=== PATIENT | male | born 1985 | race American Indian/Alaskan Native ===

== ENCOUNTER 2018-09-24 02:03 | Emergency (ER) | payer MEDICAID ==
[2018-09-24 02:25] VITALS: BP 118/78
[2018-09-24] MEDS ORDERED: NACL 0.9% 1000 ML 1,000 ML IV ONE ×2 (02:25→04:34)
[2018-09-24 03:09] LABS: Alanine Aminotransferase 35 units/L (7-56); Albumin 4.7 g/dL (3.9-5); BUN/Creatinine Ratio 18; Blood Urea Nitrogen 16 mg/dL (9-20); Calcium 8.7 mg/dL (8.4-10.2); Hemolysis Index 15
[2018-09-24 03:10] LABS: Basophils % (Auto) 0.5 % (0.0-1.8); Bilirubin,Urine NEG (Negative); Blood,Urine NEG (Negative); Color,Urine Straw (Yellow); Eosinophils # (Auto) 0.3 K/mm3 (0.0-0.4); Eosinophils % (Auto) 2.5 % (0.0-4.3); Hematocrit 42.3 % (35.5-45.6); Hemoglobin 14.7 gm/dl (11.8-15.2); Lymphocytes # (Auto) 3.9 K/mm3 (1.2-5.4); Lymphocytes % (Auto) 37.8 % (13.4-35.0); Mean Corpuscular HGB Conc 35 % (32-34); Mean Corpuscular Volume 99 fl (84-94); Monocytes # (Auto) 0.9 K/mm3 (0.0-0.8); Platelet Count 336 K/mm3 (140-440); Protein,Urine <15 mg/dL mg/dL (Negative); Red Blood Count 4.28 M/mm3 (3.65-5.03); Red Cell Distribution Width 13.1 % (13.2-15.2); Urobilinogen,Urine < 2.0 mg/dL (<2.0); WBC,Urine < 1.0 /HPF (0.0-6.0)
--- NOTE | 2018-09-24 03:40 | Emergency Department Report ---
ED Male HPI - General Chief complaint: Abdominal Pain Stated complaint: ABD PAIN, HEADACHE Time Seen by Provider: 09/24/18 02:53 Source: patient Mode of arrival: Ambulatory Limitations: No Limitations - History of Present Illness Initial comments: Pt presents to the ED with c/o right flank pain that radiates to the right, lateral side of the abdomen that began a couple of days ago. He has associated nausea. He denies any V/D, fever, dysuria, blood in the urine, urinary frequency, or any other sx. He denies any PSHx. The patient is a drinker. He s tates he drank about 3 beers today. - Related Data Previous Rx's Medication Instructions Recorded Last Taken Type Dicyclomine [Bentyl] 10 mg PO QID PRN #14 capsule 09/24/18 Unknown Rx Ondansetron [Zofran Odt] 4 mg PO Q8HR PRN #8 tab.rapdis 09/24/18 Unknown Rx Allergies Allergy/AdvReac Type Severity Reaction Status Date / Time No Known Allergies Allergy Verified 09/24/18 02:55 ED Review of Systems ROS: Stated complaint: ABD PAIN, HEADACHE Other details as noted in HPI Comment: All other systems reviewed and negative ED Past Medical Hx - Past Medical History Previous Medical History?: No - Surgical History Past Surgical History?: No - Social History Smoking Status: Never Smoker Substance Use Type: Alcohol - Medications Home Medications: Home Medications Medication Instructions Recorded Confirmed Last Taken Type Dicyclomine [Bentyl] 10 mg PO QID PRN #14 capsule 09/24/18 Unknown Rx Ondansetron [Zofran Odt] 4 mg PO Q8HR PRN #8 tab.rapdis 09/24/18 Unknown Rx ED Physical Exam - General Limitations: No Limitations General appearance: alert, in no apparent distress - Head Head exam: Present: atraumatic, normocephalic - Eye Eye exam: Present: normal appearance - ENT ENT exam: Present: mucous membranes moist - Respiratory Respiratory exam: Present: normal lung sounds bilaterally. Absent: respiratory distress, wheezes, rales, rhonchi, stridor, chest wall tenderness, accessory muscle use, decreased breath sounds, prolonged expiratory - Cardiovascular Cardiovascular Exam: Present: regular rate, normal rhythm, normal heart sounds. Absent: systolic murmur, rubs, gallop - GI/Abdominal GI/Abdominal exam: Present: soft, normal bowel sounds. Absent: distended, tenderness, guarding, rebound, rigid, mass - Back Exam Back exam: Present: normal inspection, CVA tenderness (R) (very mild). Absent: CVA tenderness (L), muscle spasm, paraspinal tenderness, vertebral tenderness - Neurological Exam Neurological exam: Present: alert, oriented X3 - Psychiatric Psychiatric exam: Present: normal affect, normal mood ED Course Vital Signs 09/24/18 09/24/18 02:23 04:17 Temperature 98.1 F Pulse Rate 76 Respiratory 18 18 Rate Blood Pressure 118/78 O2 Sat by Pulse 98 Oximetry - Reevaluation(s) Reevaluation #1: 09/24/18 05:03 pt given 1 L of fluids. Blood work drawn approx. 2 1/2 hours ago. Blood alcohol should now be normalized. Pt is not driving. Pt is taking non emergent transport. Pt appears sober, able to ambulate without difficulty, no tremors, no N/V. ED Medical Decision Making - Lab Data Result diagrams: 09/24/18 02:33 09/24/18 02:33 Laboratory Results - last 24 hr 09/24/18 09/24/18 09/24/18 02:33 02:33 02:33 WBC 10.2 RBC 4.28 Hgb 14.7 Hct 42.3 MCV 99 H MCH 34 H MCHC 35 H RDW 13.1 L Plt Count 336 Lymph % (Auto) 37.8 H [place] % (Auto) 9.0 H Eos % (Auto) 2.5 Baso % (Auto) 0.5 Lymph # 3.9 [place] # 0.9 H Eos # 0.3 Baso # 0.0 Seg Neutrophils % 50.2 Seg Neutrophils # 5.1 Sodium 137 Potassium 4.0 Chloride 98.9 Carbon Dioxide 28 Anion Gap 14 BUN 16 Creatinine 0.9 Estimated GFR > 60 BUN/Creatinine Ratio 18 Glucose 89 Calcium 8.7 Total Bilirubin 0.70 AST 40 ALT 35 Alkaline Phosphatase 54 Total Protein 7.4 Albumin 4.7 Albumin/Globulin Ratio 1.7 Lipase 88 H Urine Color Straw Urine Turbidity Clear Urine pH 6.0 Ur Specific [place] 1.005 Urine Protein <15 mg/dl Urine Glucose (UA) Neg Urine Ketones Neg Urine Blood Neg Urine Nitrite Neg Urine Bilirubin Neg Urine Urobilinogen < 2.0 Ur Leukocyte Esterase Neg Urine WBC (Auto) < 1.0 Urine RBC (Auto) 3.0 U Epithel Cells (Auto) < 1.0 Plasma/Serum Alcohol 09/24/18 03:30 WBC RBC Hgb Hct MCV MCH MCHC RDW Plt Count Lymph % (Auto) [place] % (Auto) Eos % (Auto) Baso % (Auto) Lymph # [place] # Eos # Baso # Seg Neutrophils % Seg Neutrophils # Sodium Potassium Chloride Carbon Dioxide Anion Gap BUN Creatinine Estimated GFR BUN/Creatinine Ratio Glucose Calcium Total Bilirubin AST ALT Alkaline Phosphatase Total Protein Albumin Albumin/Globulin Ratio Lipase Urine Color Urine Turbidity Urine pH Ur Specific [place] Urine Protein Urine Glucose (UA) Urine Ketones Urine Blood Urine Nitrite Urine Bilirubin Urine Urobilinogen Ur Leukocyte Esterase Urine WBC (Auto) Urine RBC (Auto) U Epithel Cells (Auto) Plasma/Serum Alcohol 0.17 H - Radiology Data Radiology results: report reviewed HISTORY: right flank pain COMPARISONS: None FINDINGS: Imaged intrathoracic contents are unremarkable. Kidneys are normal in size, axis and position. No hydronephrosis or nephrolithiasis. The ureters are normal in course and caliber. No stones are seen within the urinary bladder. The liver, gallbladder, pancreas, spleen, and adrenal glands demonstrate an unremarkable noncontrast appearance. Hollow enteric organs are normal in course and caliber. Appendix is normal. No intra-abdominal free air/fluid or lymphadenopathy. Aorta is normal in course and caliber. Superficial soft tissues are unremarkable. No acute or aggressive appearing skeletal findings. IMPRESSION: No CT evidence of obstructive urolithiasis or other acute abdominal or pelvic findings. Consider infection and recently passed stone is potential etiologies for patient's symptoms. This document is electronically signed by Ervin Smith MD., September 24 2018 04:07:40 AM ET - Medical Decision Making Pt presents to the ED with c/o right flank pain that radiates to the right, lateral side of the abdomen that began a couple of days ago. He has associated nausea. He denies any V/D, fever, dysuria, blood in the urine, urinary frequency, or any other sx. He denies any PSHx. The patient is a drinker. He states he drank about 3 beers today. VSS. very mild right CVAT, abdominal exam is normal. Pt has very mildly elevated lipase most likely due to alcohol use. Pt is tolerating PO intake. Pt given 1 L of fluids in the ED, pt is not driving, pt is going home by non emergent transport. Pt observed in the ED for three hours. Patient appears sober on repeat examination, gait is steady and normal, no tremor, no N/V, pt tolerating PO in the ED. Advised to follow up with primary care doctor in the next 2-3 days. Return to the ED for any new or worsening symptoms. - Differential Diagnosis Nephrolithiasis, UTI, Indigestion, GERD, muscle strain Critical care attestation.: If time is entered above; I have spent that time in minutes in the direct care of this critically ill patient, excluding procedure time. ED Disposition Clinical Impression: Flank pain, Nausea Elevated ETOH level Qualifiers: Blood alcohol level: 120-199 mg/100 ml Qualified Code(s): Y90.6 - Blood alcohol level of 120-199 mg/100 ml Disposition: TO HOME OR SELFCARE Is pt being admited?: No Does the pt Need Aspirin: No Condition: Stable Instructions: Flank Pain (ED) Additional Instructions: Follow up with primary care doctor in the next 2-3 days. Return to the ED for any new or worsening symptoms. Prescriptions: Dicyclomine [Bentyl] 10 mg PO QID PRN #14 capsule PRN Reason: Spasms Ondansetron [Zofran Odt] 4 mg PO Q8HR PRN #8 tab.rapdis PRN Reason: Nausea Referrals: [facility] MD KASIE [Primary Care Provider] - 2-3 Days Time of Disposition: 05:30 Print Language: JAPANESE
--- NOTE | 2018-09-24 04:10 | Cat Scan Report ---
PROCEDURE: CT ABDOMEN PELVIS WO CON TECHNIQUE: CT imaging is obtained through the abdomen and pelvis without contrast. Transaxial, coron al and sagittal reformations are provided. HISTORY: right flank pain COMPARISONS: None FINDINGS: Imaged intrathoracic contents are unremarkable. Kidneys are normal in size, axis and position. No hydronephrosis or nephrolithiasis. The ureters are normal in course and caliber. No stones are seen within the urinary bladder. The liver, gallbladder, pancreas, spleen, and adrenal glands demonstrate an unremarkable noncontrast appearance. Hollow enteric organs are normal in course and caliber. Appendix is normal. No intra-abdominal free a ir/fluid or lymphadenopathy. Aorta is normal in course and caliber. Superficial soft tissues are unremarkable. No acute or aggressive appearing skeletal findings. IMPRESSION: No CT evidence of obstructive urolithiasis or other acute abdominal or pelvic findings. Consider infe ction and recently passed stone is potential etiologies for patient's symptoms. This document is electronically signed by Ervin Smith MD., September 24 2018 04:07:40 AM ET
[2018-09-24] MEDS ORDERED: ZOFRAN IV ONE (04:34)
== END 2018-09-24 05:39 | disposition home or self-care (01) ==
LOC: ED 02:03
DX: R10.9 Unspecified abdominal pain (principal); R11.0 Nausea; R78.0 Finding of alcohol in blood; Y90.6 Blood alcohol level of 120-199 mg/100 ml; F10.129 Alcohol abuse with intoxication, unspecified
CPT/HCPCS: 36415; 74176; 80053; 81001; 83690; 85025; 96374; 99284; G0480; J2405; J7030; 80320

== ENCOUNTER 2019-06-19 13:47 | Emergency (ER) | payer MEDICAID ==
[2019-06-19 14:43] VITALS: BP 111/80
--- NOTE | 2019-06-19 14:44 | Event Note ---
ED Screening Note Date of service: 06/19/19 Time: 14:42 ED Screening Note: This is a 33 y.o. M. that presents to the ER with left hip pain since yesterday. Patient reports pain started while at work. Denies injury. This initial assessment/diagnostic orders/clinical plan/treatment(s) is/are s ubject to change based on patients health status, clinical progression and re- assessment by fellow clinical providers in the ED. Further treatment and workup at subsequent clinical providers discretion. Patient/guardian urged not to elope from the ED as their condition may be serious if not clinically assessed and managed. Initial orders include: XR left hip
--- NOTE | 2019-06-19 15:33 | XRay Report ---
LEFT HIP 2 VIEWS INDICATION: hip pain. COMPARISON: None. IMPRESSION: No acute osseous or soft tissue abnormality. Early osteoarthritic changes are identif ied at the left hip. No evidence for osteonecrosis at this time. Signer Name: Kishore Rice Jr, MD Signed: 06/19/2019 3:28 PM Workstation Name: [id number]
--- NOTE | 2019-06-19 16:49 | Emergency Department Report ---
Chief Complaint: Extremity Problem,Nontraumatic Stated Complaint: LFT HIP PAIN Time Seen by Provider: 06/19/19 14:42 - HPI History of Present Illness: This is a 33-year-old healthy looking male presents to ED complaining of left hip pain tested at this morning. Patient states he does a lot of heavy lifting and does yard work and does a lot of bending. Patient denies any injuries trauma or falls. Patient denies any back pain, fever, urinary symptoms or any other symptoms - ROS Review of Systems: As noted in HPI - Exam Vital Signs: Vital Signs 06/19/19 14:42 Temperature 97.5 F L Pulse Rate 92 H Respiratory 18 Rate Blood Pressure 111/80 O2 Sat by Pulse 98 Oximetry Physical Exam: GENERAL: Alert and oriented x3, no apparent distress, Normal Gait, atraumatic. EXTREMITIES/MUSCULOSKELETAL: No cyanosis, clubbing, rash, lesions or edema. Full ROM bilaterally. UE/LE Pulses 2+ bilaterally. LE and UE 5+ strength bilaterally, straight leg raise negative bilaterally NEUROLOGIC: The patient is cooperative with no focal neurologic deficits. MSE screening note: Focused history and physical exam performed. Due to findings the following was ordered: ED Medical Decision Making - Medical Decision Making 33-year-old male who presents for left hip pain with no other symptoms Discussed with the patient that this is not a medical emergency. Patient was given resources to [facility]/ Dr Pierre's office for further evaluation.. Patient understands instructions and states he will follow-up Vital signs are normal. he is in no acute distress ED Disposition for MSE Clinical Impression: Hip pain, left Disposition: Z-07 MED SCREENING EXAM-LEFT Is pt being admited?: No Does the pt Need Aspirin: No Condition: Stable Instructions: Arthralgia (ED) Referrals: [facility] [Outside] - 3-5 Days [facility] [Outside] - 3-5 Days Forms: Work/School Release Form(ED) Time of Disposition: 16:50
== END 2019-06-19 17:28 | disposition left against medical advice (07) ==
LOC: ED 13:47
DX: M25.552 Pain in left hip (principal)

== ENCOUNTER 2019-09-10 22:35 | Emergency (ER) | payer MEDICAID ==
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
[2019-09-11 08:19] VITALS: BP 102/58
[2019-09-11] MEDS ORDERED: IBUPROFEN 800 MG TAB PO ONE (08:36)
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
[2019-09-11] MEDS ORDERED: LIDOCAINE (1%) 10 MG/1 ML VIAL 20 ML MDV INFILTRATI NR (08:45)
== END 2019-09-11 10:48 | disposition home or self-care (01) ==
LOC: ED 22:35
DX: S01.81XA Laceration without foreign body of other part of head, initial encounter (principal); Y04.2XXA Assault by strike against or bumped into by another person, initial encounter; Y93.89 Activity, other specified; Y92.89 Other specified places as the place of occurrence of the external cause; Y99.8 Other external cause status
CPT/HCPCS: 70450; 72125

== ENCOUNTER 2021-07-11 15:52 | Emergency (ER) | payer MEDICAID ==
--- NOTE | 2021-07-11 15:59 | Emergency Department Report ---
ED General Adult HPI - General Chief complaint: Medical Clearance Stated complaint: ETOH Time Seen by Provider: 07/11/21 15:57 - History of Present Illness Initial comments: Patient was brought in by ambulance because of alcohol intoxication. He states that he was intoxicated. His neighborhood people that "know him do not like to see him this way." He states that he was drinking to dull the pain. He complains of chronic scalp pain associate with a skin lesion. It has been there for years. He also reports that he has chronic musculoskeletal pain. He is not suicidal homicidal. He is not delusional. He is not hearing voices. He states that he is just intoxicated. He would like a place to spend the night and then he would go home tomorrow. He is not having any chest pain or shortness of breath. There is no trauma. EMS reports that the patient was intoxicated and that is why they were called. - Related Data Previous Rx's Medication Instructions Recorded Last Taken Type Dicyclomine [Bentyl] 10 mg PO QID PRN #14 capsule 09/24/18 Unknown Rx Ondansetron [Zofran Odt] 4 mg PO Q8HR PRN #8 tab.rapdis 09/24/18 Unknown Rx Cyclobenzaprine [Flexeril] 10 mg PO QHS PRN #10 tablet 06/19/19 Unknown Rx Ibuprofen [Motrin 800 MG tab] 800 mg PO Q8HR PRN #30 tablet 09/11/19 Unknown Rx cephALEXin [Keflex] 500 mg PO Q12HR #10 cap 09/11/19 Unknown Rx Allergies Allergy/AdvReac Type Severity Reaction Status Date / Time No Known Allergies Allergy Verified 09/24/18 02:55 ED Review of Systems ROS: Stated complaint: ETOH Other details as noted in HPI Comment: All other systems reviewed and negative Constitutional: denies: fever Eyes: denies: vision change ENT: denies: epistaxis Respiratory: denies: shortness of breath Cardiovascular: denies: chest pain Endocrine: denies: unexplained weight loss Gastrointestinal: denies: abdominal pain Genitourinary: denies: hematuria Musculoskeletal: as per HPI. denies: back pain Skin: denies: rash Neurological: as per HPI Hematological/Lymphatic: denies: easy bruising ED Past Medical Hx - Past Medical History Previous Medical History?: Yes Additional medical history: Alcoholism, chronic pain - Family History Family history: other (Alcoholism) - Social History Smoking Status: Current Every Day Smoker - Medications Home Medications: Home Medications Medication Instructions Recorded Confirmed Last Taken Type Dicyclomine [Bentyl] 10 mg PO QID PRN #14 capsule 09/24/18 Unknown Rx Ondansetron [Zofran Odt] 4 mg PO Q8HR PRN #8 tab.rapdis 09/24/18 Unknown Rx Cyclobenzaprine [Flexeril] 10 mg PO QHS PRN #10 tablet 06/19/19 Unknown Rx Ibuprofen [Motrin 800 MG tab] 800 mg PO Q8HR PRN #30 tablet 09/11/19 Unknown Rx cephALEXin [Keflex] 500 mg PO Q12HR #10 cap 09/11/19 Unknown Rx ED Physical Exam - General Limitations: Altered Mental Status (Clinically intoxicated), Other (Pulse ox per EMS was noted and normal) General appearance: alert, in no apparent distress - Head Head exam: Present: atraumatic, other (There appears to be a skin lesion in the right parietal area consistent with a keloid. This is approximately 2 cm across. There is no warmth erythema or tenderness specifically associated with this.) - Eye Eye exam: Present: normal appearance, EOMI. Absent: scleral icterus - ENT ENT exam: Present: normal orophraynx, normal external ear exam - Neck Neck exam: Present: normal inspection. Absent: meningismus - Respiratory Respiratory exam: Present: normal lung sounds bilaterally. Absent: respiratory distress - Cardiovascular Cardiovascular Exam: Present: regular rate, normal rhythm - GI/Abdominal GI/Abdominal exam: Present: soft - Extremities Exam Extremities exam: Present: normal capillary refill - Back Exam Back exam: Absent: CVA tenderness (R), CVA tenderness (L) - Neurological Exam Neurological exam: Present: alert, altered (Clinically intoxicated with dysarthria and ataxia), CN II-XII intact, abnormal gait (Ataxic), reflexes normal - Psychiatric Psychiatric exam: Present: other (Intoxicated). Absent: suicidal ideation - Skin Skin exam: Present: warm, dry ED Course Vital Signs 07/11/21 18:06 Temperature 98.2 F Pulse Rate 67 Respiratory 15 Rate Blood Pressure 100/60 [Left] O2 Sat by Pulse 96 Oximetry - Reevaluation(s) Reevaluation #1: 07/11/21 16:04 EMS was met upon arrival. Old records noted. Patient states that he can get a sober ride. ED Medical Decision Making - Medical Decision Making Patient presents by ambulance requesting to spend the night. He is intoxicated. There is a skin lesion that is chronic. He also has chronic pain syndrome. There is no medical indication to admit the patient. He is not febrile. Is not hypoxic. There is no visible sign of acute trauma. He is not suicidal homicidal. There is no evidence of acute delusion. He is clinically intoxicated and states that he can get a sober ride. If he can get a sober ride, I do believe that discharge is appropriate. If not, he will be kept here until clinically sober and then can be discharged. Critical Care Time: No Critical care attestation.: If time is entered above; I have spent that time in minutes in the direct care of this critically ill patient, excluding procedure time. ED Disposition Clinical Impression: Chronic pain syndrome, Skin lesion of scalp Alcohol intoxication Qualifiers: Complication of substance-induced condition: uncomplicated Qualified Code(s): F10.920 - Alcohol use, unspecified with intoxication, uncomplicated Disposition: HOME / SELF CARE / HOMELESS Is pt being admited?: No Condition: Stable Instructions: Binge-Drinking Information, Adult, Chronic Pain, Adult Additional Instructions: Stop drinking alcohol. Drink plenty of water. Use Tylenol or ibuprofen for your chronic pain. Follow-up with your regular doctor. If you do not have a regular doctor, follow-up with the referral physician. Follow-up as discussed to have the skin lesion moved by the specialist. Referrals: PRIMARY MD DARLENE [Primary Care Provider] - 3-5 Days DANIA VILLALOBOS MD [Staff Physician] - 3-5 Days NAVEEN TRIANA DO [Staff Physician] - 3-5 Days
[2021-07-11 18:07] VITALS: BP 100/60
== END 2021-07-11 22:10 | disposition home or self-care (01) ==
LOC: ED 15:52
DX: G89.4 Chronic pain syndrome (principal); D23.4 Other benign neoplasm of skin of scalp and neck; F10.129 Alcohol abuse with intoxication, unspecified; F17.200 Nicotine dependence, unspecified, uncomplicated
CPT/HCPCS: 99283

== ENCOUNTER 2021-07-19 17:44 | Emergency (ER) | payer MEDICAID ==
[2021-07-19] MEDS ORDERED: IBUPROFEN 400 MG TAB PO ONE (22:17)
[2021-07-19] MEDS ORDERED: ACETAMINOPHEN 325 MG TAB PO ONE (22:17)
--- NOTE | 2021-07-19 22:18 | Emergency Department Report ---
ED General Adult HPI - General Chief complaint: Pain General Stated complaint: Cough with chest wall pain for a day and 1/2 to 2 days Time Seen by Provider: 07/19/21 22:12 Source: patient, EMS ( EMS documentation not available at time of chart di ctation ), RN notes reviewed, old records reviewed Mode of arrival: Ambulatory Limitations: No Limitations - History of Present Illness Initial comments: The patient was evaluated in the emergency department for symptoms described in the history of present illness. He/she was evaluated in the context of the global COVID-19 pandemic, which necessitated consideration that the patient might be at risk for infection with the virus that causes COVID-19. Institutional protocols and algorithms that pertain to the evaluation of patients at risk for COVID-19 are in a state of rapid change based on information released by regulatory bodies including the CDC and federal and state organizations. These policies and algorithms were followed during the patient's care in the emergency department. Please note that these policies, procedures and recommendations changed on a rapid basis. The patient is a 36-year-old gentleman, who presents to the ER today with a complaint of dry cough, and chest wall pain for the past day to day and a half. The chest wall pain is central and left-sided, does not radiate to the back, arms or neck. It is not exertional, and not present when the patient is not coughing. The patient received 1 COVID-19 vaccination, he denies loss of taste and smell. Patient denies fever, chills, abdominal pain, vomiting, DVT/PE risk factors, diaphoresis. His pain increases with palpation and range of motion and coughing. It decreases with rest he does endorse that he is a tobacco smoker. -: Gradual, days(s) Location: chest Radiation: non-radiation Quality: aching Consistency: other Improves with: other Worsens with: other - Related Data Previous Rx's Medication Instructions Recorded Last Taken Type Acetaminophen [Non-Aspirin Extra 500 mg PO Q6HR PRN #30 tablet 07/19/21 Unknown Rx Strength] Albuterol Sulfate [Proair 90 mcg IH Q4HR PRN #2 aer.pow.ba 07/19/21 Unknown Rx Respiclick] Benzonatate [Tessalon Perles] 100 mg PO Q8HR PRN #30 capsule 07/19/21 Unknown Rx Ibuprofen [Motrin] 600 mg PO Q8H PRN #30 tablet 07/19/21 Unknown Rx Nicotine Polacrilex [Nicotine Gum] 4 mg BC PRN #1 pack 07/19/21 Unknown Rx Allergies Allergy/AdvReac Type Severity Reaction Status Date / Time No Known Allergies Allergy Verified 07/19/21 17:46 ED Review of Systems ROS: Stated complaint: CHEST PAIN Other details as noted in HPI Constitutional: denies: fever ENT: congestion Respiratory: cough. denies: wheezing Cardiovascular: chest pain (Chest wall pain with cough) Gastrointestinal: denies: hematemesis, melena, hematochezia Musculoskeletal: myalgia Neurological: denies: weakness ED Past Medical Hx - Past Medical History Additional medical history: Alcoholism, chronic pain - Social History Smoking Status: Current Every Day Smoker - Medications Home Medications: Home Medications Medication Instructions Recorded Confirmed Last Taken Type Acetaminophen [Non-Aspirin Extra 500 mg PO Q6HR PRN #30 tablet 07/19/21 Unknown Rx Strength] Albuterol Sulfate [Proair 90 mcg IH Q4HR PRN #2 aer.pow.ba 07/19/21 Unknown Rx Respiclick] Benzonatate [Tessalon Perles] 100 mg PO Q8HR PRN #30 capsule 07/19/21 Unknown Rx Ibuprofen [Motrin] 600 mg PO Q8H PRN #30 tablet 07/19/21 Unknown Rx Nicotine Polacrilex [Nicotine Gum] 4 mg BC PRN #1 pack 07/19/21 Unknown Rx ED Physical Exam - General Limitations: No Limitations General appearance: alert, in no apparent distress - Head Head exam: Present: atraumatic, normocephalic - Eye Eye exam: Present: normal appearance, EOMI. Absent: nystagmus - ENT ENT exam: Present: normal exam, normal orophraynx, mucous membranes moist, normal external ear exam - Neck Neck exam: Present: normal inspection, full ROM. Absent: tenderness, meningismus - Respiratory Respiratory exam: Present: normal lung sounds bilaterally, chest wall tenderness. Absent: respiratory distress, wheezes, rales, rhonchi, stridor - Cardiovascular Cardiovascular Exam: Present: regular rate, normal rhythm, normal heart sounds. Absent: bradycardia, tachycardia, irregular rhythm, systolic murmur, diastolic murmur, rubs, gallop - GI/Abdominal GI/Abdominal exam: Present: soft. Absent: distended, tenderness, guarding, rebound, rigid, pulsatile mass - Rectal Rectal exam: Present: deferred - Extremities Exam Extremities exam: Present: normal inspection, full ROM, other (2+ pulses noted in the bilateral upper and lower extremities. There is no palpable cord. negative Homans sign. Muscular compartments are soft. The pelvis is stable.). Absent: pedal edema, calf tenderness - Back Exam Back exam: Present: normal inspection, full ROM. Absent: tenderness, CVA tenderness (R), CVA tenderness (L), paraspinal tenderness, vertebral tenderness - Neurological Exam Neurological exam: Present: alert, oriented X3, normal gait, other (No facial droop. Tongue midline. Extraocular movements intact bilaterally. Facial sensation intact to light touch in V1, V2, V3 distribution bilaterally. 5 and a 5 strength in 4 extremities. Sensation intact to light touch in 4 extremities.). Absent: motor sensory deficit - Psychiatric Psychiatric exam: Present: normal affect, normal mood - Skin Skin exam: Present: warm, dry, intact, normal color. Absent: rash ED Course Vital Signs 07/19/21 17:44 Temperature 98.3 F Pulse Rate 100 H Respiratory 18 Rate Blood Pressure 110/78 [Left] O2 Sat by Pulse 98 Oximetry ED Medical Decision Making - Lab Data Vital Signs 07/19/21 17:44 Temperature 98.3 F Pulse Rate 100 H Respiratory 18 Rate Blood Pressure 110/78 [Left] O2 Sat by Pulse 98 Oximetry - EKG Data -: EKG Interpreted by De EKG shows normal: sinus rhythm Rate: normal - EKG Data 07/19/21 22:56 The EKG is interpreted at 22: 21 Sinus rhythm, rate 91 bpm. Normal axis, normal P wave axis, high left ventricular voltage, QTC 4 6 0 ms. Abnormal EKG, although age/demographic appropriate normal variant, not a STEMI - Radiology Data Radiology results: pending, report reviewed, image reviewed CHEST 2 VIEWS INDICATION: cough w chest wall pain. COMPARISON: None FINDINGS: SUPPORT DEVICES: None. HEART: Within normal limits. LUNGS/PLEURA: No acute air space or interstitial disease. No pneumothorax. ADDITIONAL FINDINGS: Mild dextroscoliosis centered in the lower thoracic spine. IMPRESSION: 1. No acute findings. Signer Name: Tang Montana MD Signed: 07/19/2021 9:47 PM Workstation Name: [id number] - Medical Decision Making Differential diagnosis, including but not limited to: Costochondritis, bronchitis, pneumonia, tobacco use Assessment and plan: 36-year-old gentleman, who is afebrile, with reassuring vital signs, with resolved tachycardia, who denies DVT/PE risk factors, who is low risk by Wells criteria for pulmonary embolism, who presents to the ER today with complaint of reproducible chest wall pain in the context of cough. EKG unremarkable, chest x-ray unremarkable, physical exam unremarkable with the exception of reproducible chest wall pain and tenderness. Counseled to discontinue tobacco consumption. As needed Tylenol and Motrin. Reports that he is partially COVID-19 vaccinated. Denies loss of taste and smell. Denies fever. Denies vomiting, diaphoresis, exertional chest pain, this is very unlikely to be coronary artery disease. upon final evaluation, patient resting comfortably in stretcher, and no acute distress Critical care attestation.: If time is entered above; I have spent that time in minutes in the direct care of this critically ill patient, excluding procedure time. ED Disposition Clinical Impression: Costochondritis, Bronchitis Disposition: 01 HOME / SELF CARE / HOMELESS Is pt being admited?: No Does the pt Need Aspirin: No Condition: Good Instructions: Chronic Bronchitis (ED), Costochondritis, [id number], Cough, Adult, [id number] Additional Instructions: Recommend that patient discontinue tobacco consumption. Patient may take the cough medicine as needed, and pain medication as needed and directed. Patient most likely has bronchitis/smoker's cough. Symptoms will likely last anywhere from 3 to 6 weeks, and if patient continues to smoke and/or be exposed to smoke products, symptoms may last for a prolonged period of time. We do recommend that the patient follow-up with a primary care doctor within the next month. Please return to the emergency room right away with new pain, worsened pain, migration of pain, projectile vomiting, change in mental status, confusion, inability tolerate liquid feeds, new, worsened or different symptoms not present on the initial emergency room evaluation if patient elects to discontinue smoking and tobacco consumption, he may take the nicotine gum as prescribed. Referrals: PRIMARY CARE, [Primary Care Provider] - 3-[address] [facility] [Provider Group] - 3-5 Days Forms: Work/School Release Form(ED)
--- NOTE | 2021-07-19 22:52 | XRay Report ---
CHEST 2 VIEWS INDICATION: cough w chest wall pain. COMPARISON: None FINDINGS: SUPPORT DEVICES: None. HEART: Within normal limits. LUNGS/PLEURA: No acute air space or interstitial disease. No pneumothorax. ADDITIONAL FINDINGS: Mild dextroscoliosis centered in the lower thoracic spine. IMPRESSION: 1. No acute findings. Signer Name: Tang Montana MD Signed: 07/19/2021 10:47 PM Workstation Name: [id number]
[2021-07-19 23:53] VITALS: BP 122/74
--- NOTE | 2021-07-20 10:59 | Electrocardiograph Report ---
[facility] Test Date: 2021-07-19 Test Time: 22:21:32 Pat Name: REHAN SCHAEFER Department: Room: Gender: M Soot Blower: : 1985 Requested By: KARELY HINSON Order Number: [id number] Reading MD: Chirag Blanca Measurements Intervals [place] Rate: 91 P: 66 DE: 136 QRS: -19 QRSD: 89 T: 54 QT: 374 QTc: 460 Interpretive Statements Sinus rhythm WNL. No previous ECG available for comparison Electronically Signed On 07-20-2021 10:58:57 EST by Chirag Blanca
== END 2021-07-19 23:52 | disposition home or self-care (01) ==
LOC: ED 17:44
DX: M94.0 Chondrocostal junction syndrome [Tietze] (principal); J40 Bronchitis, not specified as acute or chronic; F17.200 Nicotine dependence, unspecified, uncomplicated
CPT/HCPCS: 71046; 93005; 99284

== ENCOUNTER 2021-11-14 16:08 | Emergency (ER) | payer MEDICAID ==
--- NOTE | 2021-11-14 17:59 | Cat Scan Report ---
CT HEAD WITHOUT CONTRAST INDICATION / CLINICAL INFORMATION: syncope. TECHNIQUE: All CT scans at this location are performed using CT dose reduction for ALARA by means of automated exposure control. COMPARISON: CT head without contrast from 09/10/2019. FINDINGS: BRAIN PARENCHYMA: No acute intracranial hemorrhage. No evidence of recent infarct. No mass effect or midline shift. VENTRICULAR SYSTEM/EXTRA-AXIAL SPACES: Ventricles are normal for age. A cavum septum pellucidum is ag ain seen. No extra-axial fluid collection. ORBITS: Normal as visualized. SKELETAL SYSTEM/SOFT TISSUES: No acute soft tissue or osseous abnormality. There is a similar probabl e sebaceous cyst seen along the right posterior parietal scalp. PARANASAL SINUSES/MASTOID AIR CELLS: No significant abnormality. ADDITIONAL FINDINGS: None. IMPRESSION: 1. No acute intracranial abnormality. 2. No significant interval changes. Signer Name: Mateusz Avila MD Signed: 11/14/2021 5:55 PM Workstation Name: [id number]
[2021-11-14 18:06] LABS: Basophils % (Auto) 0.4 % (0.0-1.8); Eosinophils # (Auto) 0.2 K/mm3 (0.0-0.4); Eosinophils % (Auto) 2.6 % (0.0-4.3); Hematocrit 41.3 % (35.5-45.6); Hemoglobin 13.9 gm/dl (11.8-15.2); Lymphocytes # (Auto) 2.1 K/mm3 (1.2-5.4); Lymphocytes % (Auto) 23.5 % (13.4-35.0); Mean Corpuscular HGB Conc 34 % (32-34); Mean Corpuscular Volume 101 fl (84-94); Monocytes # (Auto) 0.7 K/mm3 (0.0-0.8); Monocytes % (Auto) 7.6 % (0.0-7.3); Platelet Count 342 K/mm3 (140-440); Red Blood Count 4.07 M/mm3 (3.65-5.03); Red Cell Distribution Width 13.9 % (13.2-15.2)
[2021-11-14 18:07] LABS: Alanine Aminotransferase 30 units/L (7-56); Albumin 4.5 g/dL (3.9-5); Blood Urea Nitrogen 14 mg/dL (9-20); Calcium 8.7 mg/dL (8.4-10.2); Hemolysis Index 12
[2021-11-14 18:36] LABS: BUN/Creatinine Ratio 20
--- NOTE | 2021-11-14 18:50 | Emergency Department Report ---
ED General Adult HPI - General Chief complaint: Syncope Stated complaint: PASSOUT Time Seen by Provider: 11/14/21 16:59 Source: patient, EMS Mode of arrival: Stretcher Limitations: No Limitations - History of Present Illness Initial comments: The patient presents to the emergency department via EMS from a local [facility] after being found in the bathroom lying on the floor. EMS states that they were called to that location frequently due to the patient being intoxicated and cleaning himself in the [facility] restroom. Patient has no complaints there is a odor of EtOH on exam. Patient denies loss of consciousness and denies hitting his head. Patient Nuys chest pain, shortness breath, or headache. Patient also denies abdominal pain. -: Sudden Severity scale (0 -10): 0 Consistency: now resolved Improves with: none Worsens with: none Associated Symptoms: denies other symptoms Treatments Prior to Arrival: none - Related Data Previous Rx's Medication Instructions Recorded Last Taken Type Acetaminophen [Non-Aspirin Extra 500 mg PO Q6HR PRN #30 tablet 07/19/21 Unknown Rx Strength] Albuterol Sulfate [Proair 90 mcg IH Q4HR PRN #2 aer.pow.ba 07/19/21 Unknown Rx Respiclick] Benzonatate [Tessalon Perles] 100 mg PO Q8HR PRN #30 capsule 07/19/21 Unknown Rx Ibuprofen [Motrin] 600 mg PO Q8H PRN #30 tablet 07/19/21 Unknown Rx Nicotine Polacrilex [Nicotine Gum] 4 mg BC PRN #1 pack 07/19/21 Unknown Rx Allergies Allergy/AdvReac Type Severity Reaction Status Date / Time No Known Allergies Allergy Verified 11/14/21 16:22 ED Review of Systems ROS: Stated complaint: PASSOUT Other details as noted in HPI Comment: All other systems reviewed and negative Constitutional: denies: chills, fever Eyes: denies: eye pain, eye discharge, vision change ENT: denies: ear pain, throat pain Respiratory: denies: cough, shortness of breath, wheezing Cardiovascular: denies: chest pain, palpitations Endocrine: no symptoms reported Gastrointestinal: denies: abdominal pain, nausea, diarrhea Genitourinary: denies: urgency, dysuria Musculoskeletal: denies: back pain, joint swelling, arthralgia Skin: denies: rash, lesions Neurological: denies: headache, weakness, paresthesias Psychiatric: denies: anxiety, depression Hematological/Lymphatic: denies: easy bleeding, easy bruising ED Past Medical Hx - Past Medical History Additional medical history: Alcoholism, chronic pain - Social History Smoking Status: Never Smoker Substance Use Type: None - Medications Home Medications: Home Medications Medication Instructions Recorded Confirmed Last Taken Type Acetaminophen [Non-Aspirin Extra 500 mg PO Q6HR PRN #30 tablet 07/19/21 11/14/21 Unknown Rx Strength] Albuterol Sulfate [Proair 90 mcg IH Q4HR PRN #2 aer.pow.ba 07/19/21 11/14/21 Unknown Rx Respiclick] Benzonatate [Tessalon Perles] 100 mg PO Q8HR PRN #30 capsule 07/19/21 11/14/21 Unknown Rx Ibuprofen [Motrin] 600 mg PO Q8H PRN #30 tablet 07/19/21 11/14/21 Unknown Rx Nicotine Polacrilex [Nicotine Gum] 4 mg BC PRN #1 pack 07/19/21 11/14/21 Unknown Rx ED Physical Exam - General Limitations: No Limitations General appearance: alert, in no apparent distress - Head Head exam: Present: atraumatic, normocephalic - Eye Eye exam: Present: normal appearance, PERRL, EOMI - ENT ENT exam: Present: mucous membranes moist - Neck Neck exam: Present: normal inspection - Respiratory Respiratory exam: Present: normal lung sounds bilaterally. Absent: respiratory distress - Cardiovascular Cardiovascular Exam: Present: regular rate, normal rhythm. Absent: systolic murmur, diastolic murmur, rubs, gallop - GI/Abdominal GI/Abdominal exam: Present: soft, normal bowel sounds. Absent: distended, tenderness - Rectal Rectal exam: Present: deferred - Extremities Exam Extremities exam: Present: normal inspection - Back Exam Back exam: Present: normal inspection - Neurological Exam Neurological exam: Present: alert, oriented X3, CN II-XII intact. Absent: motor sensory deficit - Psychiatric Psychiatric exam: Present: normal affect, normal mood - Skin Skin exam: Present: warm, dry, intact, normal color. Absent: rash ED Course Vital Signs 11/14/21 11/14/21 11/14/21 16:18 16:58 16:59 Temperature 98 F 98.4 F 98.4 F Pulse Rate 82 73 73 Respiratory 14 14 Rate Blood Pressure 114/74 Blood Pressure 114/72 114/74 [Left] O2 Sat by Pulse 98 95 95 Oximetry ED Medical Decision Making - Lab Data Result diagrams: 11/14/21 17:30 11/14/21 17:30 Lab Results 11/14/21 11/14/21 11/14/21 Range/Units 17:30 17:30 17:30 WBC 8.9 (4.5-11.0) K/mm3 RBC 4.07 (3.65-5.03) M/mm3 Hgb 13.9 (11.8-15.2) gm/dl Hct 41.3 (35.5-45.6) % MCV 101 H (84-94) fl MCH 34 H (28-32) pg MCHC 34 (32-34) % RDW 13.9 (13.2-15.2) % Plt Count 342 (140-440) K/mm3 Lymph % (Auto) 23.5 (13.4-35.0) % [place] % (Auto) 7.6 H (0.0-7.3) % Eos % (Auto) 2.6 (0.0-4.3) % Baso % (Auto) 0.4 (0.0-1.8) % Lymph # (Auto) 2.1 (1.2-5.4) K/mm3 [place] # (Auto) 0.7 (0.0-0.8) K/mm3 Eos # (Auto) 0.2 (0.0-0.4) K/mm3 Baso # (Auto) 0.0 (0.0-0.1) K/mm3 Seg Neutrophils % 65.9 (40.0-70.0) % Seg Neutrophils # 5.9 (1.8-7.7) K/mm3 Sodium 142 (137-145) mmol/L Potassium 3.5 L (3.6-5.0) mmol/L Chloride 103.3 (98-107) mmol/L Carbon Dioxide 23 (22-30) mmol/L Anion Gap 19 mmol/L BUN 14 (9-20) mg/dL Creatinine 0.7 L (0.8-1.3) mg/dL Estimated GFR > 60 ml/min BUN/Creatinine Ratio 20 % Glucose 77 (75-100) mg/dL Calcium 8.7 (8.4-10.2) mg/dL Total Bilirubin 0.40 (0.1-1.2) mg/dL AST 32 (5-40) units/L ALT 30 (7-56) units/L Alkaline Phosphatase 95 (35-129) units/L Total Protein 7.1 (6.3-8.2) g/dL Albumin 4.5 (3.9-5) g/dL Albumin/Globulin Ratio 1.7 % Plasma/Serum Alcohol 0.25 H (0-0.07) % - Medical Decision Making Results discussed with patient Patient will be discharged home upon the ability of someone being able to pick them up Critical care attestation.: If time is entered above; I have spent that time in minutes in the direct care of this critically ill patient, excluding procedure time. ED Disposition Clinical Impression: Alcohol intoxication Disposition: 01 HOME / SELF CARE / HOMELESS Is pt being admited?: No Does the pt Need Aspirin: No Condition: Stable Instructions: Alcohol Intoxication Additional Instructions: return if worse Referrals: FRENCH LEONARDO MD [Staff Physician] - 3-5 Days Time of Disposition: 18:47
[2021-11-14 20:08] VITALS: BP 122/74
== END 2021-11-14 19:25 | disposition home or self-care (01) ==
LOC: ED 16:08
DX: F10.129 Alcohol abuse with intoxication, unspecified (principal); G89.29 Other chronic pain
CPT/HCPCS: 36415; 70450; 80053; 80320; 85025; 99284; G0480

== ENCOUNTER 2021-12-29 01:49 | Emergency (ER) | payer MEDICAID ==
[2021-12-29 03:13] LABS: Basophils % (Auto) 0.5 % (0.0-1.8); Eosinophils # (Auto) 0.4 K/mm3 (0.0-0.4); Eosinophils % (Auto) 4.8 % (0.0-4.3); Hematocrit 33.9 % (35.5-45.6); Hemoglobin 11.8 gm/dl (11.8-15.2); Lymphocytes # (Auto) 3.1 K/mm3 (1.2-5.4); Mean Corpuscular HGB Conc 35 % (32-34); Mean Corpuscular Volume 100 fl (84-94); Monocytes # (Auto) 0.7 K/mm3 (0.0-0.8); Monocytes % (Auto) 8.5 % (0.0-7.3); Platelet Count 295 K/mm3 (140-440); Red Cell Distribution Width 14.1 % (13.2-15.2)
[2021-12-29 03:32] LABS: BUN/Creatinine Ratio 15; Blood Urea Nitrogen 12 mg/dL (9-20); Hemolysis Index 8
[2021-12-29 04:40] LABS: Amphetamine Screen,Urine Negative; Benzodiazepines Screen,Urine Negative; Methadone Screen,Urine Negative; Opiate Screen,Urine Negative
[2021-12-29 04:46] LABS: Mucus,Urine FEW /HPF
[2021-12-29 04:51] LABS: Bilirubin,Urine Negative (Negative); Blood,Urine Trace (Negative); Color,Urine Yellow (Yellow)
[2021-12-29 04:52] LABS: Urobilinogen,Urine < 2.0 mg/dL (<2.0)
[2021-12-29 04:58] LABS: Cannabinoid Screen,Urine Positive; Cocaine Screen,Urine Positive
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
[2021-12-29] MEDS ORDERED: SODIUM CHLORIDE 0.9% 1000 ML 1,000 ML IV ONE (05:47)
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
--- NOTE | 2021-12-29 19:05 | Emergency Department Report ---
Blank Doc - Documentation Documentation: 36-year-old male presents to the hospital acute alcohol intoxication. He was evaluated by mental health and deemed stable for discharge at this time. I reassessed patient. He denies pain to head. He has a noticeable right parietal scalp swelling that is consistent with a lipoma. Patient states this has been here "a long time". Patient does not have any cervical tenderness on exam. Patient has steady gait in the ED. He has no signs of tremors, alcohol withdrawal, hypotension, confusion or other signs and symptoms of alcohol withdrawal/delirium tremors. Repeat vital signs normal range. Patient will be discharged home with follow-up resources.
[2021-12-29 19:07] VITALS: BP 129/80
== END 2021-12-29 19:20 | disposition home or self-care (01) ==
LOC: ED 01:49
DX: R45.851 Suicidal ideations (principal); F10.129 Alcohol abuse with intoxication, unspecified; F17.200 Nicotine dependence, unspecified, uncomplicated; Z20.822 Contact with and (suspected) exposure to COVID-19
CPT/HCPCS: 36415; 80048; 80307; 81001; 85025; 96360; 99284; J7030; U0003; 80320; G0480

== ENCOUNTER 2022-03-06 01:49 | Emergency (ER) | payer MEDICAID ==
[2022-03-06 02:08] VITALS: BP 118/76
[2022-03-06] MEDS ORDERED: TETANUS,DIPH,PERTUSS(ACELL) VACCINE 0.5 ML SYRINGE IM ONE (09:00)
[2022-03-06] MEDS ORDERED: IBUPROFEN 800 MG TAB PO ONE (09:00)
[2022-03-06] MEDS ORDERED: AMOXICILLIN/K CLAV 875/125MG TAB PO ONE (09:00)
[2022-03-06] MEDS ORDERED: CHLORHEXIDINE MOUTHWASH 473ML MM SCH (10:00)
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
== END 2022-03-06 11:30 | disposition home or self-care (01) ==
LOC: ED 01:49
DX: S01.511A Laceration without foreign body of lip, initial encounter (principal); G89.29 Other chronic pain; F17.200 Nicotine dependence, unspecified, uncomplicated; Z72.89 Other problems related to lifestyle; Z79.899 Other long term (current) drug therapy; Y04.8XXA Assault by other bodily force, initial encounter; Y93.89 Activity, other specified; Y92.89 Other specified places as the place of occurrence of the external cause; Y99.8 Other external cause status
CPT/HCPCS: 90471; 90715; 99283

== ENCOUNTER 2022-03-14 01:52 | Emergency (ER) | payer MEDICAID ==
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
--- NOTE | 2022-03-14 06:21 | XRay Report ---
LEFT HIP 2 VIEWS 0532 INDICATION: hip pain COMPARISON: 06/19/2019 FINDINGS: Bilateral hip degenerative changes are again seen. No fractures or dislocations are noted. Signer Name: Marquis Connor MD Signed: 03/14/2022 6:16 AM Workstation Name: [id number]
[2022-03-14 06:25] VITALS: BP 121/76
== END 2022-03-14 06:20 | disposition home or self-care (01) ==
LOC: ED 01:52
DX: S79.912A Unspecified injury of left hip, initial encounter (principal); G89.29 Other chronic pain; F17.200 Nicotine dependence, unspecified, uncomplicated; Z72.89 Other problems related to lifestyle; Z79.899 Other long term (current) drug therapy; W22.8XXA Striking against or struck by other objects, initial encounter; Y93.89 Activity, other specified; Y92.89 Other specified places as the place of occurrence of the external cause; Y99.8 Other external cause status
CPT/HCPCS: 99283